=== PATIENT | male | born 1960 | race Caucasian/White ===

== ENCOUNTER 2019-11-01 10:23 | Day surgery (SDC) | payer BC ==
[~2019-11-01] VITALS: Ht 170.2 cm; Wt 91.0 kg
[2019-11-01] MEDS ORDERED: LACTATED RINGERS 1,000 ML IV SCH (11:02)
[2019-11-01] MEDS ORDERED: DIPH25CA61 PO (11:10)
[2019-11-01] MEDS ORDERED: ANAS1TAB49 PO (11:10)
[2019-11-01] MEDS ORDERED: CETI10TA26 PO (11:10)
[2019-11-01] MEDS ORDERED: ALBU8.5H8 INH (11:10)
[2019-11-01] MEDS ORDERED: FLUT1AER INH (11:10)
[2019-11-01] MEDS ORDERED: AZEL23SP2 NS (11:10)
[2019-11-01] MEDS ORDERED: BUPIVACAINE/EPI 0.5% 1:200K ONE (11:12)
[2019-11-01 11:15] VITALS: BP 145/99
[2019-11-01] MEDS ORDERED: CHLORHEXIDINE 15 ML UDC MM ONE (11:30)
[2019-11-01] MEDS ORDERED: FENTANYL PF 250 MCG/5ML ONE (11:44)
[2019-11-01] MEDS ORDERED: MIDAZOLAM 1 MG/ML, 2ML ONE (11:44)
[2019-11-01] MEDS ORDERED: SUCCINYLCHOLINE 20 MG/ML, 10ML ONE (11:48)
[2019-11-01] MEDS ORDERED: PROPOFOL 10 MG/ML, 20ML ONE (11:49)
[2019-11-01] MEDS ORDERED: DEXAMETHASONE 4 MG/ML, 1ML ONE (11:53)
[2019-11-01] MEDS ORDERED: ONDANSETRON 2MG/ML, 2ML ONE (11:53)
[2019-11-01] MEDS ORDERED: ROCURONIUM 10 MG/ML,10ML ONE (11:53)
[2019-11-01] MEDS ORDERED: CEFOTETAN PMX 2GM/50ML 50 ML IVPB ONE (11:53)
[2019-11-01] MEDS ORDERED: FENTANYL PF 100 MCG/2ML IV PRN (12:30)
[2019-11-01] MEDS ORDERED: ALBUTEROL SULFATE 2.5 MG/3 ML NPPB PRN (12:30)
[2019-11-01] MEDS ORDERED: hydrALAzine 20 MG/ML, 1ML IV PRN (12:30)
[2019-11-01] MEDS ORDERED: DIAZEPAM 5 MG/ML, 2ML IVPush PRN (12:30)
[2019-11-01] MEDS ORDERED: OXYcodone 5 MG/5 ML ORAL.SOL UDC PO PRN (12:30)
[2019-11-01] MEDS ORDERED: EPHEDRINE 50 MG/ML, 1ML IVPush PRN (12:30)
[2019-11-01] MEDS ORDERED: LABETALOL 5MG/ML, 20ML IV PRN (12:30)
[2019-11-01] MEDS ORDERED: ACETAMINOPHEN 325 MG TABLET PO PRN (12:30)
[2019-11-01] MEDS ORDERED: HYDROmorphone 1 MG/ML, 1ML INJ IVPush PRN (12:30)
[2019-11-01] MEDS ORDERED: DIPHENHYDRAMINE 50 MG/ML, 1ML IVPush PRN (12:30)
[2019-11-01] MEDS ORDERED: MEPERIDINE/PF 25MG/0.5ML IVPush PRN (12:30)
[2019-11-01] MEDS ORDERED: PROMETHAZINE 25 MG/ML, 1ML IVPush PRN (12:30)
[2019-11-01] MEDS ORDERED: MIDAZOLAM 1 MG/ML, 2ML IV PRN (12:30)
[2019-11-01] MEDS ORDERED: ONDANSETRON 2MG/ML, 2ML IVPush PRN (12:30)
[2019-11-01] MEDS ORDERED: PROMETHAZINE 12.5 MG SUPP PR PRN (12:30)
== END 2019-11-01 15:30 | disposition home or self-care (01) ==
LOC: OUT 10:23
PROVIDERS: ATTEND Surgery
DX: K64.8 Other hemorrhoids (principal); Z11.59 Encounter for screening for other viral diseases; J45.909 Unspecified asthma, uncomplicated; M19.90 Unspecified osteoarthritis, unspecified site; Z72.89 Other problems related to lifestyle; Z79.899 Other long term (current) drug therapy; Z98.890 Other specified postprocedural states
CPT/HCPCS: 46260; 87635; 88304; C1729; J0330; J1100; J2250; J2405; J2704; J3010; J3490; J7120